=== PATIENT | female | born 1950 | race Caucasian/White ===

== ENCOUNTER → 2018-02-12 15:18 | Outpatient (CLI) | payer OTHER, SELFPAY ==
--- NOTE | 2018-02-12 15:11 | DI.REPORT_ITS ---
SYMPTOMS/DIAGNOSIS: PAIN AND SWELLING, DORSUM OF RIGHT FOOT, M79.671 RIGHT FOOT: Three views were obtained. There are minimal degenerative changes involving the joints of the mid foot and forefoot. Small osteophytes are present at the plantar fascia and Achilles attachments on the calcaneus. No other significant bony abnormality seen.
== END ==
PROVIDERS: PCP Family Medicine; Visit Provider Family Medicine
DX: M79.671 Pain in right foot (principal); M79.89 Other specified soft tissue disorders; M19.071 Primary osteoarthritis, right ankle and foot; M25.771 Osteophyte, right ankle
CPT/HCPCS: 73630

== ENCOUNTER 2018-02-20 08:30 | Outpatient (RCR) | payer OTHER, SELFPAY ==
--- NOTE | 2018-01-28 08:30 | PTTR_ITS ---
DATE: January 28, 2018 SUBJECTIVE: Rose Mary reports that she has been sore since this past weekend when she did a lot of standing. She continues to pay for it throughout the week. She has been compliant with her home stretches as well as with her self massage with use of the tennis ball. She reports that she overall feels that she has gotten better however continues to note symptoms are waxing and waning. OBJECTIVE: Manual therapy: ([id number]). Lumbopelvic distractions via leg pull. Soft tissue stretching to the hamstring, ITB, piriformis, SKC and hook lying lumbar rotation. Transferred to prone where STM was provided throughout the pelvic brim and gluteal musculature with TPR and CFM provided as needed. Reviewed her home stretches. Recommended frequent change of position to avoid aggravation. She will continue with her self massage techniques. Overall less tone and tenderness noted at todays session in comparison to last weeks. She chose to hold on taping at todays session and will monitor her symptoms. Ended with spot cold to the gluteal musculature and broad MHP surrounding in prone position for 10 minutes. She continues with her Wellness stabilization program and does not feel that the exercises are increasing her irritation. Recommended she continue to monitor this and will adjust accordingly. Direct treatment time: 30 minutes Total treatment time: 40 minutes
--- NOTE | 2018-02-04 14:11 | PTTR_ITS ---
DATE: 02/04/18 SUBJECTIVE: Rose Mary states that she is feeling better, however continue to have pain in lower back/ pelvic brim area with prolonged standing. OBJECTIVE: Manual therapy: ([id number]). performed her wellness program for core/ glut stabilization with global LE strengthening. I performed lumbopelvic stretching including SKTC, rotation in hooklying, LE distractions via leg pulls. Stretching of hamstrings, ITB, piriformis. She went into prone and received STM t/o glut and low back with focus on left. PRT's of glut medius, CFM over pelvic brim, greater trochanter, and left sacral border. She ended with spot cold and MHP x 10 min while seated. Direct treatment time: 30 min Total treatment time: 40 min
--- NOTE | 2018-02-06 09:00 | PN_ITS ---
DATE: February 06, 2018 REFERRING: Jose Armando Mcclure MD REFERRING PROVIDER DIAGNOSIS:: SI joint pain left PHYSICAL THERAPY DIAGNOSIS: proximal hip weakness, core weakness REPORTING PERIOD (for progress note and discharge note only): 12/29/17- 02/06/18 SUBJECTIVE: Rose Mary notes at least 50% improvement ranging up to 60% depending upon activity level. She reports pain at best is a 0/10 and at worst over the last week 5/10 on the VAS. She reports minimal to no pain with walking at this time. She reports she is able to stand for prolonged periods with less overall irritation however this remains the primary limiter. She is also noting some increased right foot pain. She has had on/off over the last few years. She has accommodated with tieing her shoes differently however the last couple of days her irritation has been more. Standardized Measures:Modified Oswestry Low Back Pain Questionnaire (MOLBPDQ): 8 % perceived disability rating OBJECTIVE: Posture: mild forward head and shoulder posturing. Gait: She is mildly antalgic secondary to the right foot. She notes no pain in her low back or pelvis with ambulation. Palpation: (-) PA mobilization lumbar levels. (-) pain to the pelvic brim at todays session. TP's into glut med and piriformis on the left however significantly less than at time of IE ROM: Active lumbar forward bend 10 inches fingertips to floor without pain. Extension WFL (-) lateral shift. Sidebending to the right fingertips to lateral joint line. Left 1/2 above lateral joint line. Rotation WNL without pain. AA LE ROM WNL's at this time. Strength: Demonstrates grossly 4+-5/5 LE strength without complaints of pain. Neurological: Intact to light touch. Treatment: Reassessment followed by soft tissue stretching to bilateral hamstring, ITB, piriformis, and SKC. Hook lying lumbar rotation also completed. Brief STM throughout the low back and pelvic brim into the left gluteal region with TPR to the glut med and piriformis. Direct treatment time 30 minutes Total treatment time 30 minutes ASSESSMENT: Rose Mary overall doing much better in comparison to IE. Increased ROM and functional strength. Increased community ambulation without pain. Continues to note prolonged standing to be most irritable. Will reassess in 2 weeks. She will continue with strong I HEP and Wellness program for continued core stabilization and proximal hip stability. If level of symptoms exacerbates prior to this will contact us to reschedule. If overall continues to hold up well will plan to progress back to previous Wellness program with discharge from skilled PT services. G-Codes (fill in modifier after appropriate code): Patient's primary functional limitation is in the category of: __x__ Changing and maintaining body position: [id number] Projected goal: __x__ Changing and maintaining body position: [id number] STG: __4__ weeks. 1: Independent with strong HEP, returning to full wellness program with manageable symptoms.(MET) 2: Improve body mechanics with functional ADL's, reducing pain by 50% or greater. (MET) 3: Reduce perceived disability rating by 25% (MET) PLAN: Reassess in 2 weeks. If overall continues to hold up well will plan on discharge from our care at that time. If symptoms exacerbate will contact to reappoint at a sooner date and time. She will continue with her strong I self management program. Recommended she consult with her orthopedic doctor in regards to her continued irritation into her foot. Patient is in agreement with this plan.
--- NOTE | 2018-02-20 08:45 | PTTR_ITS ---
DATE: February 20, 2018 SUBJECTIVE: Rose Mary reports that she is doing great. She reports she received the injection into the SI joint last week and has noted significant reduction in sensitivity. 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 She reports that she has been on her feet for the last 2 days at the fair helping with the [employer]. She reports mild soreness however is very happy with her level of improvement. She feels that she can continue back on her Wellness program at this time. OBJECTIVE: Manual therapy: ([id number]).Reassessment of active lumbar ROM is WNL's. Presents with minimal sensitivity to palpation. Soft tissue stretching to bilateral hamstring, ITB, piriformis, and SKC. Hook lying lumbar rotation also completed. CFM to the pelvic brim with brief TPR to the glut med. PA mobilization of the lumbar levels. All without complaints. Reviewed HEP and will progress back to Wellness program. We reassess if symptom level exacerbates if no formal contact is made in one month duration will be considered discharged from our care. Patient is in agreement with this plan. Rose Mary declined need of modality post session. Direct treatment time: 15 minutes Total treatment time: 15 minutes
== END 2018-02-27 23:59 | disposition home or self-care (01) ==
LOC: PT 08:30
PROVIDERS: PCP Family Medicine; Referring Provider Family Medicine; Visit Provider Family Medicine
DX: M53.3 Sacrococcygeal disorders, not elsewhere classified (principal); M62.81 Muscle weakness (generalized)
CPT/HCPCS: 97140

== ENCOUNTER → 2018-02-26 11:58 | Outpatient (CLI) | payer OTHER, SELFPAY | PROVIDERS: PCP Family Medicine; Visit Provider Orthopaedic Surgery | DX: M79.671 Pain in right foot (principal); M19.071 Primary osteoarthritis, right ankle and foot | CPT/HCPCS: 99213 ==

== ENCOUNTER 2018-10-07 01:07 | Outpatient (CLI) | payer OTHER, SELFPAY ==
[2018-10-07 10:28] LABS: HCT 39.5 % (36.0-46.0); HGB 12.8 g/dL (12.0-15.5); Mean Corp. HGB Concentration 32.4 g/dL (32.0-36.0); Mean Corpuscular Hemoglobin 29.9 pg (27.0-33.0); Mean Corpuscular Volume 92.3 fL (80-95); Mean Platelet Volume 10.9 fL (8.0-11.0); Platelet Count 235 x1000/uL (130-400); RBC 4.28 m/cumm (4.00-5.20); RBC Distribution Width 14.2 % (11.7-14.6)
[2018-10-07 10:38] LABS: Anion Gap 5.9 mmol/L (3-11); BUN 26 mg/dL (7-18); CO2 31.1 mmol/L (21.0-32.0); CREATININE 0.94 mg/dL (0.55-1.02); Chloride 103 mmol/L (98-107); Estimated GFR 59.22 (mL/min/1.73m2); Glucose 106 mg/dL (70-100); Potassium 3.8 mmol/L (3.5-5.1); Sodium 140 mmol/L (136-145)
== END 2018-10-07 01:27 ==
PROVIDERS: PCP Family Medicine; Visit Provider Family Medicine
DX: I10 Essential (primary) hypertension (principal)
CPT/HCPCS: 36415; 80048; 85027

== ENCOUNTER 2018-10-22 00:25 | Outpatient (CLI) | payer OTHER, SELFPAY ==
--- NOTE | 2018-10-22 12:00 | DI.MAMMO_ITS ---
SYMPTOMS/DIAGNOSIS: SCREENING, Z12.31 MAMMOGRAMS: Mammograms were interpreted according to the usual protocol including computer analysis with CAD system, tomosynthesis and C view imaging. The breast tissue is of moderate radiodensity. There is no dominant mass. There are no suspicious calcifications and there has been no significant interval change when compared with prior images. SUMMARY: No evidence of malignancy, category 1. Yearly screening mammography is recommended. Breast density category B. SA ASSESSMENT OF FINDINGS: Negative. Category 1. Patient will receive a letter notifying them of these results. BI-RADS category B. There are scattered areas of fibroglandular density.
== END 2018-10-22 00:45 ==
PROVIDERS: PCP Family Medicine; Visit Provider Family Medicine
DX: Z12.31 Encounter for screening mammogram for malignant neoplasm of breast (principal)
CPT/HCPCS: 77063; 77067

== ENCOUNTER 2019-03-25 01:23 | Outpatient (CLI) | payer OTHER, SELFPAY ==
--- NOTE | 2019-03-25 10:46 | DI.MRI_ITS ---
EXAM: MR LUMBAR SPINE WO CLINICAL HISTORY: BACK PAIN RADIATING TO LEFT LEG, LT LUMBAR RADICULOPATHY, M54.16. TECHNIQUE: Multiplanar multisequence MRI was performed. COMPARISON: No exams were available for comparison FINDINGS: No significant bony signal abnormality seen. Note is made of prominent hypertrophic degenerative henrietta nges involving facet joints at L4-5 and L5-S1 bilaterally. The conus medullaris appears intact. No significant neural foraminal narrowing seen. At L5-S1 there are very prominent hypertrophic degenerative changes of the facet joints. No central canal spinal stenosis. No disc herniation. At L4-5 there is moderate central canal spinal stenosis secondary to disc bulge and prominent hypertr ophic facet degenerative changes. No focal disc herniation seen. At L3-4 there is mild bilateral facet hypertrophy. There is an apparent inferiorly projecting disc h erniation versus extruded disc fragment which is paracentral and to the left and lies at and inferior to the disc level. There is marked compromise of the thecal sac on the left at this level. At L 2-3 there are no significant findings. At L1-2 there are no significant findings. IMPRESSION: 1. Moderate central canal spinal stenosis at L4-5, mild pseudospondylolisthesis noted at this level. Marked facet hypertrophy. 2. Central and left lateral disc herniation projected at and inferior to the disc level at L3-4 with probable extruded disc fragment associated. Please correlate with the patient's clinical exam.
== END 2019-03-25 01:43 ==
PROVIDERS: PCP Family Medicine; Visit Provider Family Medicine
DX: M54.16 Radiculopathy, lumbar region (principal); M54.5 Low back pain; M47.27 Other spondylosis with radiculopathy, lumbosacral region; M48.07 Spinal stenosis, lumbosacral region; M51.16 Intervertebral disc disorders with radiculopathy, lumbar region
CPT/HCPCS: 72148

== ENCOUNTER 2019-04-28 02:28 | Outpatient (CLI) | payer OTHER, SELFPAY ==
[2019-04-28 11:15] LABS: Abs Immature Grans 0.01 k/cumm (0.0-0.09); Absolute Basophil Count 0.03 k/cumm (0.0-0.2); Absolute Eosinophil Count 0.07 k/cumm (0.0-0.7); Absolute Lymphocyte Count 1.44 k/cumm (1.2-3.4); Absolute Monocyte Count 0.47 k/cumm (0.11-0.7); Basophils % 0.5; Eosinophils % 1.2; HCT 41.3 % (36.0-46.0); HGB 13.6 g/dL (12.0-15.5); Immature Grans % 0.2; Lymphocytes % 23.9; Mean Corp. HGB Concentration 32.9 g/dL (32.0-36.0); Mean Corpuscular Hemoglobin 30.4 pg (27.0-33.0); Mean Corpuscular Volume 92.2 fL (80-95); Mean Platelet Volume 10.6 fL (8.0-11.0); Monocytes % 7.8; Neutrophils % 66.4; Platelet Count 269 x1000/uL (130-400); RBC 4.48 m/cumm (4.00-5.20); RBC Distribution Width 14.3 % (11.7-14.6); White Blood Cell Count 6.02 k/cumm (4.4-10.8)
[2019-04-28 11:24] LABS: Bilirubin Negative (Negative); Blood Trace-intact (Negative); Clarity Clear (Clear); Glucose Negative (Negative); Ketones Negative (Negative); Leukocyte Esterase Trace (Negative); Nitrite Negative (Negative); Urobilinogen 0.2 EU/dL (Up TO 0.2)
[2019-04-28 11:36] LABS: ALT 32 U/L (14-59); AST 17 U/L (15-37); Albumin 3.9 g/dL (3.4-5.0); Alkaline Phosphatase 105 U/L (46-116); Anion Gap 10.3 mmol/L (3-11); BUN 20 mg/dL (7-18); Bilirubin, Total 0.5 mg/dL (0.2-1.0); CO2 29.7 mmol/L (21.0-32.0); CREATININE 0.89 mg/dL (0.55-1.02); Calcium 9.6 mg/dL (8.5-10.1); Chloride 103 mmol/L (98-107); Glucose 121 mg/dL (70-100); Potassium 3.8 mmol/L (3.5-5.1); Sodium 143 mmol/L (136-145); Total Protein 7.2 g/dL (6.4-8.2)
[2019-04-28 11:42] LABS: Bacteria Few HPF (Negative); C & S Indicated? C&S Done As Ordered; Casts Negative LPF (Negative); Crystals Negative HPF (Negative); Epithelial Cells Moderate HPF (Negative); Mucus Trace (Negative); RBC 0-2 (0-2)
== END 2019-04-28 02:48 ==
PROVIDERS: PCP Family Medicine; Visit Provider Family Medicine
DX: Z01.818 Encounter for other preprocedural examination (principal); M54.16 Radiculopathy, lumbar region; Z01.812 Encounter for preprocedural laboratory examination
CPT/HCPCS: 36415; 80053; 81003; 81015; 85025; 87086

== ENCOUNTER 2020-03-15 10:16 | Outpatient (CLI) | payer OTHER, SELFPAY ==
--- NOTE | 2020-03-15 10:15 | DI.RAD_ITS ---
EXAM: XR FOOT RT COMPLETE CLINICAL HISTORY: right foot pain TECHNIQUE: COMPARISON: No exams were available for comparison FINDINGS: Three views were obtained. There are small osteophytes of the sites of attachment of plantar fascia and Achilles tendon on the calcaneus. Minimal degenerative changes noted involving the joints of the foot ankle. No other significant bony or soft tissue abnormality seen. Alignment appears within no rmal limits. IMPRESSION: RADIATION DOSE DELIVERED: Total DLP
== END 2020-03-15 10:36 ==
PROVIDERS: PCP Nurse Practitioner Family; Referring Provider Nurse Practitioner Family; Visit Provider Student in an Organized Health Care Education/Training Program
DX: M79.671 Pain in right foot (principal); M25.774 Osteophyte, right foot; M19.071 Primary osteoarthritis, right ankle and foot
CPT/HCPCS: 99203; 99214; 73630

== ENCOUNTER → 2020-04-13 02:55 | Outpatient (CLI) | payer OTHER, SELFPAY ==
[2020-04-13 13:06] LABS: Anion Gap 9.1 mmol/L (3-11); BUN 21 mg/dL (7-18); CO2 30.9 mmol/L (21.0-32.0); CREATININE 0.91 mg/dL (0.55-1.02); Calcium 9.3 mg/dL (8.5-10.1); Calculated LDL 132 mg/dL (<100); Chloride 103 mmol/L (98-107); Cholesterol 220 mg/dL (<200); Glucose 99 mg/dL (74-106); HDL Cholesterol 47 mg/dL (40-60); Potassium 3.9 mmol/L (3.5-5.1); Sodium 143 mmol/L (136-145); Triglyceride 206 mg/dL (<150)
[2020-04-13 13:12] LABS: Hemoglobin A1C 5.4 % (<5.7)
== END ==
PROVIDERS: PCP Nurse Practitioner Family; Visit Provider Nurse Practitioner Family
DX: I10 Essential (primary) hypertension (principal); E78.5 Hyperlipidemia, unspecified; R73.01 Impaired fasting glucose
CPT/HCPCS: 36415; 80048; 80061; 83036

== ENCOUNTER 2020-06-13 00:54 | Outpatient (CLI) | payer OTHER, SELFPAY ==
--- NOTE | 2020-06-13 07:00 | DI.MAMMO_ITS ---
EXAM: MAMMO SCREENING CLINICAL HISTORY: screening,Z12.39 TECHNIQUE: Bilateral full field digital CC and MLO mammographic images were obtained with 3D tomosyn thesis and utilizing computer aided detection (CAD). COMPARISON: Available for comparison. FINDINGS: Masses/Architectural Distortion: There is a new ovoid density in the posterior medial left breast on the CC view. There is an asymmetric density in the inferior right breast on the MLO view. Microcalcifications: No suspicious pleomorphic-type are seen. Skin Thickening/Nipple Retraction: None. IMPRESSION: 1. New ovoid density in the posterior medial left breast on the CC view and asymmetric density in the inferior right breast on the MLO view. 2. Additional views of the breasts are recommended for further evaluation. Ultrasound may be indicat ed at that time. BI-RADS Category 0 - Assessment Incomplete: Need additional imaging evaluation Breast Density - Category B - Scattered areas of fibroglandular density A negative radiographic report should not delay biopsy if a dominant or clinically suspicious mass is present. Up to ten percent of cancers are not identified on mammography. A negative report may reinforce clinical impression. Adenosis and dense breasts may obscure an underlying neoplasm. False positive reports average 6 to 10%. Patient will receive a letter notifying them of these results.
== END 2020-06-13 01:14 ==
PROVIDERS: PCP Nurse Practitioner Family; Visit Provider Nurse Practitioner Family
DX: Z12.31 Encounter for screening mammogram for malignant neoplasm of breast (principal); R92.8 Other abnormal and inconclusive findings on diagnostic imaging of breast
CPT/HCPCS: 77063; 77067

== ENCOUNTER 2020-06-20 01:14 | Outpatient (CLI) | payer OTHER, SELFPAY ==
--- NOTE | 2020-06-20 | DI.US_ITS ---
EXAM: MG MAMMO SCREEN CALL BACK BI and U/S breast RT limited and U/S breast LT limited CLINICAL HISTORY: F/U MAMMO, NEW OVOID DENSITY LT BREAST, ASYMMETRIC DENSITY RT BREAST. TECHNIQUE: Craniocaudal and mediolateral oblique Full Field Digital Mammography views of the bilater al breast with Computer Aided Diagnosis followed by Tomosynthesis and bilateral breast ultrasound. COMPARISON: Priors available for comparison. FINDINGS: Mammography/Tomosynthesis: Masses/Architectural Distortion: In the left breast, there is again seen a well-circumscribed ovoid d ensity in the medial posterior aspect on the CC view. In the right breast, several small well-circum scribed nodules are seen in the inferior breast on the MLO view. No associated microcalcifications a re seen. Microcalcifictions: No suspicious pleomorphic-type are seen. Skin Thickening/Nipple Retraction: None. Bilateral breast US: Echotexture: Normal appearance of the glandular tissue. Shadowing: No suspicious foci. Cyst: None. Solid lesions: In the left breast, at the 9 o'clock position 3 cm from the nipple there is an ovoid 0 .5 cm by 0.6 x 0.3 cm hypoechoic nodule present. No posterior acoustic enhancement or shadowing is s een. No internal blood flow is noted. No suspicious sonographic features are noted. In the right b reast, the lower inner and lower outer quadrants were evaluated sonographically no cystic or solid ma sses are seen. Ductal dilation: None. IMPRESSION: 1. No evidence of malignancy is noted. 2. A six-month follow-up bilateral mammogram and left breast ultrasound are recommended for re-evalua tion. 3. The findings were discussed with the patient on the date of the examination. BI-RADS Category 3 - 6 month - Probably Benign Finding: Recommend follow-up mammography in 6 months Breast Density - Category B - Scattered areas of fibroglandular density A negative radiographic report should not delay biopsy if a dominant or clinically suspicious mass is present. Up to ten percent of cancers are not identified on mammography. A negative report may reinforce clinical impression. Adenosis and dense breasts may obscure an underlying neoplasm. False positive reports average 6 to 10%. Patient will receive a letter notifying them of these results.
--- OUTSIDE RECORDS SUMMARY | 2020-06-20 01:16 | XMS_ITS | Encounter Summary ---
:1950 Author Care Team Providers Name Role Phone [facility] Primary Care Provider [phone] [facility] [phone] Reason for Visit SLEEP CLINIC Follow-Up CPAP/BIPAP Therap y Assessment and Plan Assessment Note I provided greater than 25 minutes in the care of this patient, more than half the time was spent in parn-we-wlra couns eli. 1. Obstructive sleep apnea syndr ome 09/24/17 Diag PSG Mild KELSEY AHI 13.2/hr RDI 14.5/hr Supine AHI 62/hr (65 min in supine), R Lateral AHI 4/hr; L Lateral AHI 5/hr. kat O2 86%, 0 min <= 88% and mean O2 92%. 10/23/17 started apap 6 to 16cm 01/23/18 increased apap 10 to 16cm due to residual AHI 5.7/hr. noted symptomatic improvement with in sleep quality, headaches and nocturia. 06/09/18 inc to apap 11 to 18cm due to t x AHI still elevated at 5.4/hr, pt reporting some days with unrefreshing sleep. cpap data also shows few hours on few nights with at highest pressure setting with residual events. I suspect these are painter pine position sleep periods, due to supine AHI 62/hr. d/w pt positional therapy device vs. increasing cpap and pt elected latter. 07/20/18 inc to apap 12 to 18cm via sanchez view small due to at least 1 night in last 7 days with tx AHI at 7.9/hr, overall better, no periods at max pressure anymore, overall tx AHI 4.6/hr which is impro patty. new starting cpap 12cm pressure wel l tolerated by patient in clinic. add room humidifier for dry mouth despite humidity level 12/07/18: mask refit for airfit f20 med. low threshold to dec pressure to apap 11 to 18 (or even lower if needed, tho trade off his higher tx AHI). she is getting cheek puffing and mask leak on these hig her pressures. finds airfit f20 more com fortable than sanchez view. 04/19/19: cont apap 12 to 18cm, new mask f20 med w/ padacheek liner working well for her, tx AHI much better at 1.8/hr and dry mouth resolved too. 1 year f/u, sooner if needed 04/18/20: cont same pressure, 1.5 year f /u 2. Xerostomia 05/30/18 related to cpap use, t ean her how to increase humidifier setting 07/20/18 switched to adaptive humidifier, confirmed it was set at max 5 level, tube temp at 3 level. if not improved, then advised her to add room humidifier. 04/19/19: dry mouth is better now, not e belgica using xylimelt products anymore. 04/18/20: dry mouth issue but tolerable Discussion Note Remember to always take precautio ns on drowsy driving. If you experience sleepiness while driving, find a safe area to extract puller and take a break. Research suggests taking a power nap (15 to 20 beth nathan) and/or coffee (or caffeine containi ng food such as dark chocolate) may be effective aides. As always, you should use your judgement on whether to drive at all, if you are sleep deprived or feeling sleepy. Thank you for the kind opportunity to pa rticipate in your medical care. You expressed good understanding of your diagnosis and treatment, and agreed to proceed with the plan we discussed together. If yo u have any questions or concerns prior t o your next appointment, please call Sleep Clinic. Patient educational handouts: No information available. Plan of Care Patient Instructions 1. We will keep the same pressure f or auto cpap 12 to 18cm. 2. You are doing well on your mask AirFi t f20 medium full face mask with padacheek liner 3. Your dry mouth is not too bad. You al so don't have have cheek puffing anymore. 4. Keep up the good work with using cpap therapy, it has reduced the number of times you stop breathing from 14 times per hour down to 2.6 times per hour. 5. Let the surgeons and anesthesiologist s know you have sleep apnea and use cpap and bring your cpap machine to hospital for surgery. I wish you the best for the right ankle surgery. 18 month follow up, sooner if needed, pl ease call me! Reminders Provider Appointments Return to on or around Mikal Persaud MD, Office 12/17/2021 Board Certified Sleep Physician Lab None ? ? recorded. Referral None ? ? recorded. Procedures None ? ? recorded. Surgeries None ? ? recorded. Imaging None ? ? recorded. Medications Name Start Date ? ? Aleve 220 mg capsule ? Take by oral route as needed. calcium ? Glucosamine ? 1000mg BID hydrochlorothiazide 25 mg tablet ? Take 1 tablet every day by oral route. ibuprofen 200 mg tablet ? Take by oral route as needed. Multivital ? propranolol 80 mg tablet ? Take 1 tablet every day by oral route. sertraline 50 mg tablet ? Take 1 tablet every day by oral route. Systane (PF) 0.4 %-0.3 % eye drops in a dropperette ? Medications Administered None recorded. Vitals Height Weight BMI Blood Pressure 5 ft 5 in 205.7 lbs 34.2 kg/m2 131/47 mm[Hg] Results Lab Results None recorded. Allergies Code Code System Name Reaction Severity Onset 7052 RxNorm Morphine Itching ? ? Shellfish Derived Vomiting ? ? Problems Name Status Onset Date Source ? Hyperlipidemia Active ? ? Depressive Disorder Active ? ? Obstructive Sleep Apnea Syndrome Active ? ? Migraine Active ? ? Hypertensive Disorder Active ? ? Osteoarthritis Active ? ? Neck Pain Active ? ? Pericardial Cyst Active ? ? History of Malignant Neoplasm of Colon Active ? ? Procedures None recorded. Vaccine List None recorded. Social History Tobacco Smoking Status Never Smoker Alcohol intake None Live alone or with others? with others Are you currently employed? N Blind or serious difficulty seeing Y Not es: corrective glasses Language Difficulties No Most Recent Tobacco Use Screening 12/07/2018 Hard of hearing or deaf in one or Y Note s: hearing aids both ears both ears? Caffeine intake Notes: Soda: 1 ca n daily Occupation retired Functional Status Blind or serious Yes difficulty seeing? Past Encounters 04/18/2020 Obstructive Sleep Apnea Syndrome; Xerost anders Persaud MD, Board Certified Sleep Ph ysician[facility] [place] [address], Ph. History of Present Illness Note: <p>Rose Mary Cancino is a pleasant 68 year old woman who returns for cpap therapy follow up.& lt;/p><p>
</p><p>Comorbidities hypertension, KELSEY, migraines, depression </p><p>
</p><p><strong>PREVIOUS SLEEP EVALUATION: </strong></p><p>
</p><p>She had sleep evaluation in early 2017 prompted by her observation of her snoring and witnessed apneas. she also had unrefreshing sleep, nightsweats, nocturia 1/night.</p><p>
</p><p>Diagnostic PSG on 09/24/17 (Wt 204 lbs / bmi 33.9) showed Mild KELSEY that was very severe in supine position sleep. Sleep efficiency was 83%, AHI 13.2/hr, RDI 14.5/hr, REM AHI 4.1/hr, REM RDI 4.1/hr, supine AHI 62/hr (65 minutes in supine sleep), right lateral AHI 4/hr, left lateral AHI 5/hr, sp02 kat 86%, 0 minutes were spent luz maria saturation <88%, arousal index 8/hr, PLMi 1/hr, PLM arousal index 0.9/hr. EKG NSR.

</p><p>Last visit on 06/09/18, patient had good benefit on cpap, but due to residual AHI 5.4/hr that is slightly elevated and periods where cpap pressures were at max value, so cpap pressure was further increased to apap 12 to 18cm.</p><p>
</p><p><strong>TODAY: on apap 12 to 18cm via airfit f20 medium with padacheek liner.</strong>< /p><p><span>min cheek puffing and dry mouth is issue but tolerable, not too bad</span>
</p><p><span>back is now 90% better after surgery</span><b r></p><p><span>but now having ankle surgery for arthritis</span>
</p><p><span>not needing </span>xylimelt<span> products anymore</spa n>
</p><p>
</p> Review of Systems ? Notes: <p>A 14-point <strong>REVIEW OF SYSTEM</strong> was obtained and reviewed, includes CONSTITUTIONAL, EYE S, ALLERGY, NEUROLOGIC, ENDOCRINE, GI, CARDIOVASCULAR, SKIN, MSK, E NT, , RESPIRATORY, HEMATOLOGIC, PSYCH systems. Pertinent symptoms are discu ssed in history, otherwise negative.
</p><p>dry m outh</p><p>nocutria</p><p>joint pain</p><p></p> Physical Exam ? Notes: <p>

</p><p>GENERAL: { {well appearing# chronically ill appearing}}, appearing {{stated# older th an younger than}} age, no acute distress, {{obese# normal tall lean}} build
HEENT: atraumatic skull, anicteric
RESPIRATORY: qu iet respiration, able to speak in full sentences without dyspnea, no accessor y muscle use,
SKIN: no facial skin rash, no facial skin lesions
PSYCH IATRIC: well groomed, fluent speech, good insight, linear thought process, good eye contact, {{balanced# flat}} affect
NEUROLOGIC: alert, oriented, symmetric facial expression

<strong>Cl inical Data Reviewed:</strong>

1. {{Modified Pediatric [place] Sleepiness Scale [place] Sleepiness Scale*}}: 3 out of {{24# 21 due to not d riving}} , stable

2. {{Sleep study results as above.# Sleep study resul ts not available, requested Unable to obtain sleep study reports No sleep study reports}}

3. Machine Download Data:
{{Resmed AirSense 1 0 Auto CPAP Resmed AirSense 10 Auto BIPAP Respironics Dreamstati on Auto CPAP* Respironics Dreamstation Auto BIPAP}}
PAP Settings: {{A uto CPAP# Auto BIPAP CPAP BIPAP}} 12 to 18 CmH2O
Date Range: {{DATE 03/18/2020}} to {{DATE 04/16/2020}}
<stro ng>Days with Usage >=4 hours: {{76.7# Over 70 100}} %</strong>
<s adrianne>Avg Usage per Day Used: {{1 2 3 4 5* 6 7 8 9 10}} Ho urs {{58# 0}} Minutes </strong></p><p>Mean/Median Pressure: {{12.5# number___} } cmh2O
90th-tile/95th-tile Pressure: {{13.7# number___}} cmH2O
{{Avg Time in Large Leak Daily- # Median-90th%tile Leak: Laura k:}} {{Not significant* Significant leak}}
<strong>Average AH I: {{2.6# enter}} per hour </strong>
{{Normal flow limitation index. * Abn ormal flow limitation index. }}
{{Normal vibratory snore index. * Abn ormal vibratory snore index. }}
{{Daily details do not show significant betina ods at maximum pressure # Daily details do not show significant periods at maximum pressure Daily details shows significant periods at maximum pressure} }
</p><p><span></span></p>
--- OUTSIDE RECORDS SUMMARY | 2020-06-20 01:16 | XMS_ITS ---
:1950 Author Care Team Providers Name Role Phone [facility] OTHER [phone] [address] [place] [address] Primary Care Provider [phone] Allergies Code Code System Name Reaction Severity Status Onset 7095 RxNorm Morphine Itching ? Active ? Shellfish Vomiting ? Active ? Derived Medications Name Status Start Date Stop Date ? ? Aleve 220 mg capsule Active ? Not availab le Take by oral route as needed. calcium Active ? Not available Glucosamine Active ? Not available 1000mg BID hydrochlorothiazide 25 mg tablet Active ? Not available Take 1 tablet every day by oral route. ibuprofen 200 mg tablet Active ? Not avai lable Take by oral route as needed. Multivital Active ? Not available propranolol 80 mg tablet Active ? Not florinda ilable Take 1 tablet every day by oral route. sertraline 50 mg tablet Active ? Not avai lable Take 1 tablet every day by oral route. Systane (PF) 0.4 %-0.3 % eye drops in a Active ? Not available dropperette Problems Name Status Onset Date Source ? Hyperlipidemia Active ? ? Depressive Disorder Active ? ? Obstructive Sleep Apnea Syndrome Active ? ? Migraine Active ? ? Hypertensive Disorder Active ? ? Osteoarthritis Active ? ? Neck Pain Active ? ? Pericardial Cyst Active ? ? Apnea Unknown ? History Snoring Unknown ? History History of Malignant Neoplasm of Colon Active ? ? Procedure by Method Unknown ? History Procedures None recorded. Results Lab Results None recorded. Past Encounters 04/18/2020 Obstructive Sleep Apnea Syndrome; Everette Persaud MD, Board Certified Sleep Ph ysician: [address] [place] [address], Ph. 04/19/2019 Obstructive Sleep Apnea Syndrome; Everette Persaud MD, Board Certified Sleep Ph ysician: [address] [place] [address], Ph. Social History Tobacco Smoking Status Never Smoker Vaccine List None recorded. Plan of Care Patient Instructions 1. We [...] sooner if needed, pl ease call me! 1. We will keep the same pressure f or auto cpap 12 to 18cm. 2. You are doing well on your new mask A irFIt f20 medium full face mask with padacheek liner 3. Your dry mouth has resolved since the changes we made last time. You also don't have have cheek puffing anymore. 4. Keep up the good work with using cpap therapy, it has reduced the number of times you stop breathing from 14 times per hour down to 2 times per hour. 5. Let the surgeons and anesthesiologist s know you have sleep apnea and use cpap and bring your cpap machine to hospital for surgery. I wish you the best for the back surgery, hope it works well for your back problems! 12 month follow up, sooner if needed, pl ease call me! Reminders Provider Appointments None recorded. ? ? Lab None recorded. ? ? Referral None recorded. ? ? Procedures None recorded. ? ? Surgeries None recorded. ? ? Imaging None recorded. ? ? Vitals 04/18/2020 03:30PM Office 30 Height Weight BMI Blood Pressure 165.1 cm 93.3 kg 34.2 kg/m2 131/47 mm[Hg] 04/19/2019 11:30AM Office 30 Height Weight BMI Blood Pressure 165.1 cm 96.39 kg 35.4 kg/m2 122/60 mm[Hg] 12/07/2018 11:00AM Office 30 Height Weight BMI Blood Pressure 165.1 cm 94.35 kg 34.6 kg/m2 122/58 mm[Hg] 07/20/2018 12:45PM Office 30 Height Weight BMI Blood Pressure 165.1 cm 92.99 kg 34.1 kg/m2 147/80 mm[Hg] 06/09/2018 03:45PM Office 30 Height Weight BMI Blood Pressure 165.1 cm 95.25 kg 34.9 kg/m2 160/90 mm[Hg] 01/23/2018 08:45AM Office 15 Height Weight BMI Blood Pressure 165.1 cm 91.22 kg 33.5 kg/m2 140/68 mm[Hg] 09/12/2017 Height Weight Blood Pressure 165.1 cm 92.71 kg 140/72 mm[Hg]
== END 2020-06-20 01:34 ==
PROVIDERS: PCP Nurse Practitioner Family; Visit Provider Nurse Practitioner Family
DX: R92.8 Other abnormal and inconclusive findings on diagnostic imaging of breast (principal)
CPT/HCPCS: 76642; 77063; 77067

== ENCOUNTER 2021-01-08 01:20 | Outpatient (CLI) | payer OTHER, SELFPAY ==
--- NOTE | 2021-01-08 08:30 | DI.US_ITS ---
Exam(s) US BREAST LT COMPLETE EXAM: US BREAST LT COMPLETE CLINICAL HISTORY: 3-6 MOS f/u, f/u abnl mammo, r92.8,z09. TECHNIQUE: Complete ultrasound of the left breast was performed including all 4 quadrants, the retro areolar region, and the ipsilateral axilla. COMPARISON: Prior mammograms were reviewed. Today's mammogram was also reviewed . Prior ultrasound examination May 2020 also reviewed FINDINGS: Please refer to the combined mammogram/ultrasound report dictated today. IMPRESSION: Appropriate follow-up is . BI-RADS Category 3 - 6 month - Probably Benign Finding: Recommend follow-up mammography in 6 months Breast Density - Category B - Scattered areas of fibroglandular density Breast density Category C or D implies that the patient has dense breast tissue. Dense breast tissue can make it harder to find cancer on a mammogram. Dense breast tissue is also associated with an incr eased risk of breast cancer. This information about the result of the mammogram report was provided to the patient to raise their awareness. Use this report when you speak with the patient about their risks for breast cancer, which includes their family history. At that time, you may recommend additional screening tests (Ultrasoun d or MRI) as these tests may add significant information. A negative radiographic report should not delay biopsy if a dominant or clinically suspicious mass is present. Up to ten percent of cancers are not identified on mammography. A negative report may reinforce clinical impression. Adenosis and dense breasts may obscure an underlying neoplasm. False positive reports average 6 to 10%. Patient will receive a letter notifying them of these results.
--- NOTE | 2021-01-08 14:23 | DI.MAMMO_ITS ---
Exam(s) MAMMO DIAGNOSTIC BI EXAM: MAMMO DIAGNOSTIC BI AND COMPLETE LEFT BREAST ULTRASOUND CLINICAL HISTORY: 3-6 MOS F/U,f/u abnl mammo, r92.8,z09. TECHNIQUE: Both CC and MLO mammographic images of both breasts were obtained with 3D Tomosynthesiste chnique and utilizing computer aided detection (CAD). COMPARISON: Prior mammograms dating back to 2010, the most recent being May 2020. Prior breast ultrasound examinations May 2020 were also reviewed FINDINGS: BILATERAL MAMMOGRAM: There are no new significant radiographic findings in the right breast. Previously described area of concern in the right breast is less evident on the present study (and was apparently negative on ult rasound May 2020) In the left breast the small nodular density posteromedially is unchanged on the mammogram. A few sm all benign-appearing nodular densities are noted more anteriorly in the left breast. Benign microcalcifications in both breasts are again noted. There are no new malignant-appearing manuel rocalcification groups. There is no new architectural distortion nor skin thickening-traction. COMPLETE LEFT BREAST ULTRASOUND: At the 9 o'clock position there is a 4.5 x 2.5 millimeter wider than taller benign-appearing finding which has appearance of a conglomeration microcysts. At the 10 o'clock position there is a 4 x 3 millimeter benign microcyst. Both of the above findings have benign appearance and are in the general area of the previously descr ibed finding on the ultrasound of 06/20/2020. At the 12 o'clock position there is a 5 x 2 millimeter microcyst. At the 3 o'clock position there is a 3 x 2 millimeter microcyst. At the 5 o'clock position there is a 4 x 2 millimeter microcyst. There are no significant findings in the immediate retroareolar region. Left axilla is negative for significant adenopathy. IMPRESSION: 1. No radiographic evidence of malignancy in the right breast. 2. Stable benign-appearing posteriorly located nodule in the medial aspect of the left breast, unchan ged from May 2020. This may or may not correspond to the benign-appearing ultrasound findings a t 9 and 10 o'clock positions on today's left breast ultrasound. Nevertheless, there are no concernin g focal ultrasound findings on today's complete left breast ultrasound. Appropriate follow-up is repeat left breast imaging in 6 months, this to include repeat left breast m ammogram and complete left breast ultrasound.. Findings and recommendations were discussed by myself with the patient today. BI-RADS Category 3 - 6 month - Probably Benign Finding: Recommend follow-up mammography in 6 months Breast Density - Category B - Scattered areas of fibroglandular density Breast density Category C or D implies that the patient has dense breast tissue. Dense breast tissue can make it harder to find cancer on a mammogram. Dense breast tissue is also associated with an incr eased risk of breast cancer. This information about the result of the mammogram report was provided to the patient to raise their awareness. Use this report when you speak with the patient about their risks for breast cancer, which includes their family history. At that time, you may recommend additional screening tests (Ultrasoun d or MRI) as these tests may add significant information. A negative radiographic report should not delay biopsy if a dominant or clinically suspicious mass is present. Up to ten percent of cancers are not identified on mammography. A negative report may reinforce clinical impression. Adenosis and dense breasts may obscure an underlying neoplasm. False positive reports average 6 to 10%. Patient will receive a letter notifying them of these results.
== END 2021-01-08 01:40 ==
PROVIDERS: PCP Nurse Practitioner Family; Visit Provider Nurse Practitioner Family
DX: Z09 Encounter for follow-up examination after completed treatment for conditions other than malignant neoplasm (principal); R92.8 Other abnormal and inconclusive findings on diagnostic imaging of breast; N63.20 Unspecified lump in the left breast, unspecified quadrant
CPT/HCPCS: 76642; 77062; 77066; G0279

== ENCOUNTER 2021-07-12 01:48 | Outpatient (CLI) | payer MEDICARE, SELFPAY ==
--- NOTE | 2021-07-12 15:22 | DI.MAMMO_ITS ---
Exam(s) MAMMO SCREENING EXAM: MAMMO SCREENING CLINICAL HISTORY: screening,z12.39 TECHNIQUE: Mammograms were interpreted according to the usual protocol including computer analysis w [employer] CAD system, tomosynthesis and C-view imaging. COMPARISON: 2012 through 2020 FINDINGS: The breasts are composed of scattered fibroglandular densities, Breast Density category B. No suspicious masses or suspicious microcalcifications are seen. Scattered areas of nodularity and b enign calcifications are seen bilaterally. No skin thickening or abnormal axillary lymph nodes are seen. There has been no significant change from prior exams. IMPRESSION: BI-RADS Cat 2 - Benign Findings Yearly screening mammography is recommended. Breast Density - Category B, scattered fibroglandular densities. A negative radiographic report should not delay biopsy if a dominant or clinically suspicious mass is present. Up to ten percent of cancers are not identified on mammography. A negative report may reinforce clinical impression. Adenosis and dense breasts may obscure an underlying neoplasm. False positive reports average 6 to 10%. Patient will receive a letter notifying them of these results.
== END 2021-07-12 02:08 ==
PROVIDERS: PCP Nurse Practitioner Family; Visit Provider Nurse Practitioner Family
DX: Z12.39 Encounter for other screening for malignant neoplasm of breast (principal)
CPT/HCPCS: 77063; 77067

== ENCOUNTER 2021-07-12 04:28 | Outpatient (CLI) | payer MEDICARE, SELFPAY ==
[2021-07-12 13:57] LABS: Anion Gap 9.7 mmol/L (3-11); BUN 21 mg/dL (7-18); CO2 28.3 mmol/L (21.0-32.0); CREATININE 0.8 mg/dL (0.55-1.02); Calcium 9.8 mg/dL (8.5-10.1); Chloride 102 mmol/L (98-107); Glucose 97 mg/dL (74-106); Sodium 140 mmol/L (136-145)
== END 2021-07-12 04:29 | disposition home or self-care (01) ==
LOC: LBO 04:28
PROVIDERS: PCP Nurse Practitioner Family; Visit Provider Nurse Practitioner Family
DX: I10 Essential (primary) hypertension (principal)
CPT/HCPCS: 36415; 80048

== ENCOUNTER 2022-07-15 01:25 | Outpatient (CLI) | payer MEDICARE, SELFPAY ==
--- NOTE | 2022-07-15 06:45 | DI.MAMMO_ITS ---
Exam(s) MAMMO SCREENING EXAM: MAMMO SCREENING CLINICAL HISTORY: screening,z12.39 TECHNIQUE: Bilateral full field digital CC and MLO mammographic images were obtained with 3D tomosyn thesis and utilizing computer aided detection (CAD). COMPARISON: Available for comparison. FINDINGS: Masses/Architectural Distortion: There again seen multiple bilateral nodules present. There has been interval increase in size of 2 nodules in the central right breast on the CC view. Microcalcifications: No suspicious pleomorphic-type are seen. Stable bilateral calcifications are see n. Skin Thickening/Nipple Retraction: None. IMPRESSION: 1. Interval increase in size of 2 nodules in the central right breast on the CC view. 2. A spot compression views requested. A complete right breast ultrasound should be obtained for fur ther evaluation. BI-RADS Category 0 - Assessment Incomplete: Need additional imaging evaluation Breast Density - Category C - Heterogeneously dense Breast density category C or D implies that the patient has dense breast tissue. Dense breast tissue is very common and is not abnormal but dense breast tissue can make it harder to find cancer on a ma mmogram. Also, dense breast tissue may increase their breast cancer risk. This information about the result of the mammogram report was provided to the patient to raise their awareness. Use this report when you speak with the patient about their risks for breast cancer, which includes their family hist ory. At that time, you may recommend for more screening tests (Ultrasound or MRI) as they might be us eful based on their risk. A negative radiographic report should not delay biopsy if a dominant or clinically suspicious mass is present. Up to ten percent of cancers are not identified on mammography. A negative report may reinforce clinical impression. Adenosis and dense breasts may obscure an underlying neoplasm. False positive reports average 6 to 10%. Patient will receive a letter notifying them of these results.
--- NOTE | 2022-07-15 06:45 | DI.US_ITS ---
Exam(s) US SOFT TISS ABD WALL/LOW BACK EXAM: US SOFT TISS ABD WALL/LOW BACK CLINICAL HISTORY: Suspected lipoma of left upper back,d17.9. TECHNIQUE: Ultrasound was performed using standard protocol. COMPARISON: No exams were available for comparison FINDINGS: Sonographic assessment utilizing grayscale and color Doppler imaging was performed and targeted to th e area of clinical concern. There is a 6.0 x 1.2 x 3.3 cm isoechoic mass in the left upper back corresponding to the patient's pa lpable abnormality. Sonographically this would be consistent with a lipoma. IMPRESSION: Findings consistent with a soft tissue lipoma. DATA REPOSITORY:
== END 2022-07-15 01:45 ==
LOC: DI 01:26
PROVIDERS: PCP Nurse Practitioner Family; Visit Provider Nurse Practitioner Family
DX: Z12.31 Encounter for screening mammogram for malignant neoplasm of breast (principal); N63.10 Unspecified lump in the right breast, unspecified quadrant; R92.2 Inconclusive mammogram
CPT/HCPCS: 77063; 77067; 76705

== ENCOUNTER 2022-07-18 02:37 | Outpatient (CLI) | payer MEDICARE, SELFPAY ==
--- NOTE | 2022-07-18 | DI.US_ITS ---
Exam(s) MG MAMMO SCREEN CALL BACK UNI US BREAST RT COMPLETE EXAM: MG MAMMO SCREEN CALL BACK UNI-RIGHT AND COMPLETE RIGHT BREAST ULTRASOUND CLINICAL HISTORY: F/U MAMMO, R92.8,INTERVAL INCREASE IN SIZE OF 2 NODULES. TECHNIQUE: Unilateral spot mammographic images obtained with 3D tomosynthesisand utilizing computer aided detection (CAD). . Complete RIGHT breast Ultrasound was also performed, including all 4 quadrants, the retroareolar sloan on, and the ipsilateral axilla. COMPARISON: Prior mammograms were reviewed. This additional imaging was performed due to findings described on the recent screening mammogram of 07/15/2022. FINDINGS: DIAGNOSTIC MAMMOGRAM: Additional mammographic views performed todaydo not dissipate the nodules described on the recent [facility] mogram report. We proceeded with breast ultrasound. COMPLETE RIGHT BREAST ULTRASOUND: Ultrasound performed today reveals microcysts corresponding to the nodule on mammogram.. At the 12 o'clock position there is a 5 x 3 millimeter benign microcyst. Also at 12 o'clock position is a 4 x 3 millimeter microcyst. At the 1 o'clock position there is a 4 millimeter microcyst. Scanning of the ipsilateral axilla reveals no significant adenopathy. IMPRESSION: 1. There are benign microcysts corresponding to the finding described on the recent mammogram. Ther e are no solid lesions seen in the right breast on ultrasound examination. Appropriate follow-up as discussed by myself with the patient today is repeat right breast mammogram in 6 months, with earlier imaging if a self detected breast changes noted.. The patient was informed of these findings and recommendations prior to leaving the department today. BI-RADS Category 3 - 6 month - Probably Benign Finding: Recommend follow-up mammography in 6 months Breast Density - Category B - Scattered areas of fibroglandular density Breast density Category C or D implies that the patient has dense breast tissue. Dense breast tissue can make it harder to find cancer on a mammogram. Dense breast tissue is also associated with an incr eased risk of breast cancer. This information about the result of the mammogram report was provided to the patient to raise their awareness. Use this report when you speak with the patient about their risks for breast cancer, which includes their family history. At that time, you may recommend additional screening tests (Ultrasoun d or MRI) as these tests may add significant information. A negative radiographic report should not delay biopsy if a dominant or clinically suspicious mass is present. Up to ten percent of cancers are not identified on mammography. A negative report may reinforce clinical impression. Adenosis and dense breasts may obscure an underlying neoplasm. False positive reports average 6 to 10%. Patient will receive a letter notifying them of these results.
== END 2022-07-18 02:57 ==
LOC: DI 02:37
PROVIDERS: PCP Nurse Practitioner Family; Visit Provider Nurse Practitioner Family
DX: R92.8 Other abnormal and inconclusive findings on diagnostic imaging of breast (principal); N60.11 Diffuse cystic mastopathy of right breast; Z12.31 Encounter for screening mammogram for malignant neoplasm of breast
CPT/HCPCS: 76642; 77063; 77067

== ENCOUNTER 2022-07-23 03:22 | Outpatient (CLI) | payer MEDICARE, SELFPAY ==
[2022-07-23 12:22] LABS: Anion Gap 5.4 mmol/L (3-11); BUN 20 mg/dL (7-18); CO2 31.6 mmol/L (21.0-32.0); CREATININE 0.9 mg/dL (0.55-1.02); Calcium 9.1 mg/dL (8.5-10.1); Calculated LDL 85 mg/dL (<100); Chloride 103 mmol/L (98-107); Cholesterol 175 mg/dL (<200); Estimated GFR 67.92 (mL/min/1.73m2); Glucose 103 mg/dL (74-106); HDL Cholesterol 51 mg/dL (40-60); Potassium 3.4 mmol/L (3.5-5.1); Sodium 140 mmol/L (136-145); Triglyceride 197 mg/dL (<150)
== END 2022-07-23 03:23 | disposition home or self-care (01) ==
PROVIDERS: PCP Nurse Practitioner Family; Visit Provider Nurse Practitioner Family
DX: I10 Essential (primary) hypertension (principal); E78.5 Hyperlipidemia, unspecified
CPT/HCPCS: 36415; 80048; 80061

== ENCOUNTER → 2022-11-07 10:06 | Outpatient (BNVA) | payer MEDICARE, SELFPAY | PROVIDERS: PCP Nurse Practitioner Family; Referring Provider Nurse Practitioner Family; Visit Provider Physical Therapy Assistant | DX: Z12.11 Encounter for screening for malignant neoplasm of colon (principal); Z80.0 Family history of malignant neoplasm of digestive organs ==

== ENCOUNTER 2022-11-21 10:41 | Day surgery (SDC) | payer MEDICARE, SELFPAY ==
--- NOTE | 2022-11-20 19:17 | W.PM.DSUDISC ---
Date of service: 11/21/22 Time of Service: 12:42 Discharge Plan Disposition Patient Disposition: Home Condition: Good Discharge Details Reason For Visit: Screening colonoscopy Attending Provider: Darrin Mulligan Primary Care Provider: Thelma Rodriguez Home Meds and New Rx's Prescriptions: Continued losartan 100 mg tablet 100 mg PO DAILY Qty: 90 3RF diclofenac sodium 1 % gel 2 g topical QID PRN (Reason: pain) Qty: 100 3RF hydrochlorothiazide 25 mg tablet 25 mg PO DAILY Qty: 90 3RF sertraline 50 mg tablet 50 mg PO HS Qty: 90 3RF multivitamin [Daily Multi-Vitamin] 1 EACH tablet 1 ea PO DAILY glucosamine sulfate 2KCl 1,000 MG tablet 1,000 mg PO BID calcium carb and citrate-vitD3 1 EACH tablet extended release 1 ea PO BID ibuprofen 200 MG capsule 200 - 400 mg PO PRN PRN Systane (propylene glycol) 15 ML drops 1 drp Ophthalmic BID naproxen sodium [Aleve] 220 MG capsule 440 mg PO DAILY PRN Discontinued polyethylene glycol 3350 17 gram/dose powder 17 g PO ONCE Qty: 238 0RF Rx Instructions: Take per colonoscopy instructions as provided by ordering providers office bisacodyl [Dulcolax (bisacodyl)] 5 mg tablet,delayed release (DR/EC) 5 mg PO ONCE Qty: 4 0RF Rx Instructions: Take per colonoscopy instructions provided by ordering providers office Discharge Instructions Additional Instructions: Rose Mary, we were able to complete your colonoscopy today without any difficulty. I did find 2 small areas that seem consistent with polyps. I removed these both completely. Otherwise, your colonoscopy looked fantastic. The quality of your preparation was excellent, and I did not see anything concerning for colon cancer. Based on your history, a typical recommendation is a follow-up colonoscopy every 5 years. However, this can be influenced by some types of colon polyps. Once I have the pathology report from the polyps that I removed today I will be in touch. 1. If tolerated, consume a soft, low fiber diet for 1-2 days. 2[address] Do not drive, drink alcohol, operate machinery, make critical decisions, or do activities that require coordination or balance for 24 hours. 3. Because air was put into your colon during the procedure, expelling air from your rectum (passing gas or farting) is normal. 4. You may not have a bowel movement for 1-3 days because of the colonoscopy prep. This is normal. 5. Go directly to the emergency room if you notice any of the following: Develop chills (warm to touch), or if you have a thermometer and your temperature is above 101 Difficulty breathing or difficultly swallowing Persistent vomiting Severe abdominal pain, other than gas cramps Severe chest pain Black, tarry stools Any bleeding ? exceeding one tablespoon 6. Call your physician if the site where your intravenous was started becomes red, swollen, painful, and warm to touch. 7. Your physician has reviewed your pre-procedure medications. Please continue to take those medications as previously ordered. You will be given specific information/education regarding any changes to your medications before leaving. Activity:: Activity as Tolerated Discharge Orders Discharge Orders: Discharge Order (Routine); Ordered 11/20/22 Ordered By: Darrin Mulligan DS: Diagnosis Discharge Diagnosis (1) Screening for colon cancer: Status: Acute Asessment and Plan: Follow-up on polypectomy results
--- NOTE | 2022-11-20 19:18 | COLE_ITS ---
Date of service: 11/21/22 Time of Service: 12:43 Colonoscopy Report Date of procedure: 11/21/22 Pre-op diagnosis general: Screening colonoscopy Post-op diagnosis procedure note: other (Colon polyps) Procedure: Colonoscopy with polypectomy Surgeon: Darrin Mulligan Anesthesia Type: General:No Airway Estimated blood loss (mL): 5 Pathology: other (Colon polyp at previous anastomosis, polyp at 25 cm) Complications: None Disposition: same day Indications: Rose Mary is a 72 year old woman who had a sigmoid colectomy for colon cancer. She is undergoing screening colonoscopy today. Prep: Miralax/Dulcolax Procedure Start Time: 12:15 Procedure End Time: 12:25 Retraction Time: 7 Findings: Colon polyp adjacent to the anastomosis, colon polyp at 25 cm Procedure Description: After the induction of monitored anesthetic care, and with the patient in left lateral decubitus position, I began by performing an external anorectal exam.? Perineum and skin were normal, as was the anal verge.? There was no evidence of external hemorrhoids.? Next, I performed a digital rectal exam.? I did not appreciate any abnormal findings.? Next, I advanced a colonoscope into the rectal vault.? I performed retroflexion.? This appeared normal.? Using insuf flation, I then advanced the colonoscope beyond the rectal folds and into the sigmoid colon before advancing towards the cecum.? Her previous colorectal anastomosis was seen around 20 cm from the anal verge. It appears to be a [id number] anastomosis. There is a small corner of the distal colonic remnant with a small amount of polypoid tissue. It was very sessile, and less than 0.25 cm. I removed this with cold forcep polypectomy. There was minimal bleeding. Using great care, I advanced along the true lumen of the a ferret limb of the anastomosis into the descending colon. About 5 cm past the anastomosis was another small area of sessile lymphoid appearing tissue. It was less than 0.25 cm. I removed this with cold forcep polypectomy as well. After that, I can continue to advance the colonoscope towards the cecum. The quality of the prep was excellent.? The scope was noted to be in the cecum by identification of the ileocecal valve and appendiceal orifice.? I then began withdrawing the colonoscope using repeated irrigation as necessary for full evaluation of the colonic mucosa. ?Once the scope was withdrawn to the level of the rectum, great care was taken to examine portions of the rectal folds.? Finally, the scope was withdrawn and the patient was brought to the same-day surgery recovery unit as the anesthetic wore off. ?The findings and instructions were shared with the patient prior to discharge.
[2022-11-21 10:59] VITALS: BP 137/65; PULSE 80; RESP 17; TEMP 36.3; O2SAT 95
[2022-11-21] MEDS: Lactated Ringers 1,000 ML 80 ML IV (11:18)
--- NOTE | 2022-11-21 11:26 | W.ANESPRE ---
General Info Date of Service Date Performed: 11/21/22 Height: 5 ft 5 in Weight: 88.8 kg Body Mass Index (BMI): 32.5 Surgical Procedure: Operation Date: 11/21/22 11:50 Proposed Procedure Side Surgeon danilo Mulligan MD Meds Allergies and Home Medications Allergies Allergy/AdvReac Type Severity Reaction Status Date / Time morphine sulfate Allergy Intermediate Itching Verified 11/21/22 11:06 [From Duramorph (PF)] shellfish derived AdvReac Mild vomit Verified 11/21/22 11:06 Home Medication Medication Instructions Recorded calcium carb,cit ER 600 mg-vit D3 1 ea PO BID 12/11/12 12.5 mcg (500 unit) tablet,ext.rel glucosamine sulfate 2KCl 1,000 mg 1,000 mg PO BID 12/11/12 tablet multivitamin (Daily Multi-Vitamin 1 ea PO DAILY 12/11/12 tablet) ibuprofen 200 mg capsule 200 - 400 mg PO PRN PRN 05/13/14 naproxen sodium 220 mg capsule 440 mg PO DAILY PRN 12/27/14 (Aleve) peg 400-propylene glycol 0.4 %-0.3 1 drp ophthalmic (eye) BID 12/27/14 % eye drops (Systane (propylene glycol)) diclofenac sodium 1 % topical gel 2 g topical QID PRN pain #100 grams 06/17/22 losartan 100 mg tablet 100 mg PO DAILY #90 tabs 06/17/22 hydrochlorothiazide 25 mg tablet 25 mg PO DAILY #90 tabs 08/24/22 sertraline 50 mg tablet 50 mg PO HS #90 tabs 08/24/22 Current Visit Medications: Current Medications Generic Name Dose Route Start Last Admin Trade Name Freq PRN Reason Stop Dose Admin Hyoscyamine Sulfate 0.125 mg 11/20/22 19:20 Hyoscyamine 0.125 Mg Sl/Oral/Chew SL 12/20/22 19:19 DIRECTED PRN Ringer's Solution 1,000 mls @ 80 mls/hr 11/21/22 06:00 11/21/22 11:18 IV 12/20/22 23:59 80 mls/hr INFUSION YASH Administration IV Miscellaneous Supplies 1 each 11/21/22 06:00 Iv Access IV 12/20/22 23:59 DIRECTED YASH Ondansetron HCl 4 mg 11/20/22 19:20 Ondansetron 4 Mg/2 Ml Vial IVP 12/20/22 19:19 Q4H PRN PRN Nausea / Vomiting Sodium Chloride 0 ml 11/21/22 06:00 Normal Saline Flush 10 Ml Syr IV 12/20/22 23:59 PRN PRN Sodium Chloride 0 ml 11/21/22 06:00 Normal Saline 10 Ml Vial IJ 12/20/22 23:59 DIRECTED PRN Sterile Water 0 ml 11/21/22 06:00 Water,Injection,Sterile 10 Ml Vial IJ 12/20/22 23:59 DIRECTED PRN PFSH Active Problems Active Problems: Problem Status Onset Code Screening for colon cancer Z12.11 Osteoarthritis M19.90 Hyperlipidemia E78.5 Essential hypertension I10 Generalized anxiety disorder F41.1 Sensorineural hearing loss (SNHL) of both ears H90.3 Obstructive sleep apnea ~08/2021 G47.33 Obesity E66.9 Major depressive disorder, recurrent F33.9 Trigger finger, right ring finger M65.341 Medical History Medical History (Updated 11/20/22 @ 19:17 by Darrin Mulligan MD) Bilateral sacroiliitis Left lumbar radiculopathy Malignant neoplasm of colon 1998 s/p sigmoid colectomy Migraine headache without aura Surgical History Surgical History Hx of thumb surgery (~05/20/14) Resection/interpositional arthroplasty, trapeziometacarpal joint, right thumb S/P colon resection (~1998) Sigmoid colectomy for colon cancer S/P colonoscopy (07/19/15) S/P lumbar fusion (05/18/19) L4-L5 laminectomy, medial facetectomy, L4-L5 posterior lumbar interbody fusion, left L3-L4 discectomy S/P tonsillectomy Pt. 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/07/13) Status post total right knee replacement (01/04/15) Tobacco Smoking/Tobacco Use Status: Never Passive smoking exposure: Yes Second hand exposure: Yes Alcohol Alcohol Intake: never Substance Use Substance use: Never Substance use type: does not use Vital Signs and Lab Results Vital Signs Most Recent Vital Signs in EMR: Most Recent Vital Signs Temp Pulse Resp BP Pulse Ox 36.3 C L 80 17 137/65 95 11/21/22 10:59 11/21/22 10:59 11/21/22 10:59 11/21/22 10:59 11/21/22 10:59 Lab Results Blood Type / Crossmatch: No Data to Display Complete Blood Count: No Data to Display Complete Metabolic Panel: No Data to Display Liver Function Panel: No Data to Display Coagulation Panel: No Data to Display Cardiac Panel: No Data to Display Arterial Blood Gas: No Data to Display Venous Blood Gas: No Data to Display Pancreas Panel: No Data to Display Thyroid Panel: No Data to Display Infectious Disease: No Data to Display Blood Cultures: No Data to Display Toxicology Panel: No Data to Display Imaging and Studies Imaging and Studies Study information below may be from another EMR and interpreted by another provider. Please see original notes in EMR for more complete details. Stress Test Summary: 06/15: normal perfusion and contraction. Pulmonary Function Summary: 06/15: overall normal study. Anesthesia Assessment and Plan Anesthesia History Personal History: No History of Anesthesia Complications Family History: No Family History of Anesthesia Complications Exercise Tolerance Exercise Tolerance: Metabolic Equivalents>4 Cardiac & Pulmonary Exam Cardiac Exam: Normal S1/S2 Heart Sounds Pulmonary Exam: Clear Bilateral Breath Sounds Implantable Cardiac Device Does patient have a Pacemaker or an ICD?: No Airway Exam Known Difficult Airway: No Mallampati Class: 3 Mouth Opening: Normal (> 3cm) Thyromental Distance: Greater than 3 cm Neck Range of Motion: Full ROM Neck Circumference: Normal Teeth Condition: Normal Dentition ASA Classification ASA Score: ASA 2 Emergency Case?: No NPO Status NPO Status: NPO Clears >2 hours, Solids >8 hours Anesthesia Plan Resuscitation Status: Full Code Anesthesia Technique: General Anesthesia Airway Planned: Natural Airway Monitors Used: Standard Monitors Preoperative Comments:: 72 yo female for colo. sig PMHx: HTN, KELSEY, anxiety/depression, migraines, lumbar fusion.
[2022-11-21 11:35] VITALS: BMI 32.5
--- NOTE | 2022-11-21 12:17 | BOWEL_PTH ---
PATIENT: Rose Mary Cancino LOC: [facility] U#:[id number] AGE/SX: 72/F ROOM: RE11/21/[address]: Darrin Mulligan MD : 1950 BED: DIS: 11/21/2022 SPEC #: [id number] RECD: 11/21/22 13:00 STATUS: AMILCAR REAnna #: [id number] MELODY: 11/21/22 12:[address]: Darrin Mulligan DEPT: Surgical Specimen RECD BY: Leola Thurston ENTERED: 11/21/22 13:02 SP TYPE: Bowel OTHR DR: Thelma Rodriguez, BON Tissues: 1 - BIOPSY BOWEL 2 - BIOPSY BOWEL Procedures: GROSS AND MICRO LEVEL 4 Comments: [id number]
[2022-11-21 12:32] VITALS: BP 103/51; PULSE 74; RESP 16; TEMP 36.5; O2SAT 97
--- NOTE | 2022-11-21 12:54 | W.ANESPOSTOP ---
Postoperative Evaluation Date, Time and Location Date Performed: 11/21/22 Time Performed: 12:54 Patient Location: Day Surgery Unit Vital Signs Most Recent Imported Vital Signs: Most Recent Vital Signs Temp Pulse Resp BP Pulse Ox 36.5 C 74 16 103/51 L 97 11/21/22 12:32 11/21/22 12:32 11/21/22 12:32 11/21/22 12:32 11/21/22 12:32 Pain Score Most Recent Pain Score: Most Recent Pain Score Pain Level 0 11/21/22 12:32 Assessment Mental Status: Awake (Alert & Oriented to Patient Baseline) Airway and Respiratory Function: Patent airway with normal (patient baseline) respiratory exam Cardiovascular Function: Hemodynamically Stable Hydration Status: Adequately Hydrated Nausea & Vomiting: No Nausea or Vomiting Pain: Pt. Denies Any Pain Peripheral Nerve Block: Patient did not receive a nerve block
[2022-11-21 13:04] VITALS: BP 140/56; PULSE 62; RESP 18; TEMP 36.6; O2SAT 98
== END 2022-11-21 13:25 | disposition home or self-care (01) ==
PROVIDERS: PCP Nurse Practitioner Family; Visit Provider Surgery
PROC: 0DJD8ZZ Inspection of Lower Intestinal Tract, Via Natural or Artificial Opening Endoscopic (ICD-10-PCS; CPT 45378; principal; 2022-11-21 11:45)
DX: Z12.11 Encounter for screening for malignant neoplasm of colon (principal); K63.5 Polyp of colon; Z98.0 Intestinal bypass and anastomosis status; Z85.038 Personal history of other malignant neoplasm of large intestine
CPT/HCPCS: 45380; 88305

== ENCOUNTER → 2022-12-10 08:45 | Outpatient (BNVA) | payer MEDICARE, SELFPAY | PROVIDERS: PCP Nurse Practitioner Family; Referring Provider Nurse Practitioner Family; Visit Provider Student in an Organized Health Care Education/Training Program | DX: M65.341 Trigger finger, right ring finger (principal) | CPT/HCPCS: 99214 ==

== ENCOUNTER 2023-01-03 07:53 | Day surgery (SDC) | payer MEDICARE, SELFPAY ==
--- NOTE | 2023-01-03 07:15 | W.PM.OP ---
Date of service: 01/03/23 Time of Service: 10:00 Operative Note Operative Note DATE OF PROCEDURE: 01/03/23 PRE-OP DIAGNOSIS: Right ring finger trigger finger POST-OP DIAGNOSIS: same PROCEDURE: Right ring finger trigger release, CPT #10993 SURGEON: Sam Karimi ANESTHESIA TYPE: Local By Surgeon Refer to Anesthesia Record Patient was transported to: PACU Patient's condition: stable Indications: Please see complete medical record for details. Procedure Description: In the operating room, local anesthesia was induced. The patient was positioned supine on the operating room table. All bony prominences were well-padded. Preoperative antibiotics were admitted. The right hand was prepped and draped in the usual sterile fashion. The correct patient, procedure, and side of the procedure were all verified prior to incision. Appropriate analgesia was confirmed. A small direct volar approach to the A1 israel was used a few centimeters in length through a skin wrinkle. Subcutaneous tissue was swept out of the way bluntly exposing the israel margins. A deep blade was used to incise the israel sequentially and carefully. Complete release was confirmed with mosquito snaps proximally and distally. The tendons were examined and had a mild swelling and fraying beneath the triggering israel site. Full range of motion was demonstrated with the patient without any mechanical symptoms. The small incision was thoroughly irrigated normal saline. Hemostasis was appropriate. The skin was closed using 4-0 nylon sutures. Xeroform applied over the top followed by gauze and the bandage and hand were gently compressed with an Gio bandage. The patient tolerated local anesthesia without complication and was transferred to the recovery room in a stable condition.
--- NOTE | 2023-01-03 07:21 | W.PM.DSUDISC ---
Date of service: 01/03/23 Time of Service: 12:00 Discharge Plan Disposition Patient Disposition: Home Condition: Stable Discharge Details Attending Provider: Sam Karimi Primary Care Provider: Thelma Rodriguez Home Meds and New Rx's Prescriptions: Continued losartan 100 mg tablet 100 mg PO DAILY Qty: 90 3RF diclofenac sodium 1 % gel 2 g topical QID PRN (Reason: pain) Qty: 100 3RF hydrochlorothiazide 25 mg tablet 25 mg PO DAILY Qty: 90 3RF sertraline 50 mg tablet 50 mg PO HS Qty: 90 3RF multivitamin [Daily Multi-Vitamin] 1 EACH tablet 1 ea PO DAILY glucosamine sulfate 2KCl 1,000 MG tablet 1,000 mg PO BID calcium carb and citrate-vitD3 1 EACH tablet extended release 1 ea PO BID Systane (propylene glycol) 15 ML drops 1 drp Ophthalmic BID Discontinued ibuprofen 200 MG capsule 200 - 400 mg PO PRN PRN naproxen sodium [Aleve] 220 MG capsule 440 mg PO DAILY PRN Discharge Instructions Additional Instructions: Surgery: Right ring finger trigger release Activity: Protect hand for a few weeks. Gently increase ring finger motion and hand gripping. Recommend elevation to minimize swelling and discomfort. Prescriptions: None Resume home medicines, use [id number] Tylenol (acetaminophen) as needed for mild pain and ibuprofen OR naproxen (Aleve) as needed for moderate to severe pain and swelling. Dressings: Leave dressing in place for 3 days. May then remove and leave open to air or cover incision with Band-Aid. May get wet after 5 days. Follow-up: 10-[address] Karimi Please call the office during business hours with any questions or concerns. Stand Alone Forms: Anesthesia Discharge Inst., Luciano Montejo (DSU) Referrals: Sam Karimi MD [ [facility] STAFF PHYSICIAN] - Discharge Orders Discharge Orders: Discharge Order (Routine); Ordered 01/03/23 Ordered By: Naima Desai DS: Diagnosis Discharge Diagnosis (1) Trigger finger, right ring finger: Status: Chronic
[2023-01-03 08:15] VITALS: BP 141/68; PULSE 74; RESP 16; TEMP 36.6; O2SAT 95
[2023-01-03] MEDS: Lactated Ringers 1,000 ML 30 ML IV (09:00)
[2023-01-03] MEDS: ceFAZolin 2 GM/50 ML BAG IVPB (09:28)
[2023-01-03] MEDS: Sodium Bicarbonate 50 MEQ/50 ML VIAL (09:57)
[2023-01-03] MEDS: Lidocaine 1% Pres-Free W/EPI 1/200,000 30 ML VIAL (09:57)
[2023-01-03 10:09] VITALS: BP 154/63; PULSE 61; RESP 16; TEMP 36.2; O2SAT 97
== END 2023-01-03 10:40 | disposition home or self-care (01) ==
PROVIDERS: PCP Nurse Practitioner Family; Visit Provider Student in an Organized Health Care Education/Training Program
PROC: (CPT 26055; principal; 2023-01-03 09:15)
DX: M65.341 Trigger finger, right ring finger (principal)
CPT/HCPCS: 26055; J0690

== ENCOUNTER → 2023-01-15 09:52 | Outpatient (BNVA) | payer MEDICARE, SELFPAY | PROVIDERS: PCP Nurse Practitioner Family; Referring Provider Nurse Practitioner Family; Visit Provider Student in an Organized Health Care Education/Training Program | DX: Z47.89 Encounter for other orthopedic aftercare (principal); M79.641 Pain in right hand ==

== ENCOUNTER 2023-01-24 00:30 | Outpatient (CLI) | payer MEDICARE, SELFPAY ==
--- NOTE | 2023-01-24 07:30 | DI.MAMMO_ITS ---
Exam(s) MAMMO DIAGNOSTIC UNI EXAM: MAMMO DIAGNOSTIC UNI CLINICAL HISTORY: 3-6 month follow up,R92.8,Z09. TECHNIQUE: Craniocaudal and mediolateral oblique Full Field Digital Mammography views of the right b reast with Computer Aided Diagnosis followed by Tomosynthesis. COMPARISON: No exams were available for comparison FINDINGS: Mammography/Tomosynthesis: Masses/Architectural Distortion: There again seen multiple well-circumscribed nodules in the right br east. There has been interval decrease in size of a nodule seen in the central medial right breast s salud the prior examination. Microcalcifictions: No suspicious pleomorphic-type are seen. Skin Thickening/Nipple Retraction: None. IMPRESSION: 1. No evidence of malignancy is noted. 2. A six-month follow-up right mammogram is recommended for re-evaluation. 3. The findings were discussed with the patient on the date of the examination. BI-RADS Category 3 - 6 month - Probably Benign Finding: Recommend follow-up imaging in 6 months Breast Density - Category C - Heterogeneously dense Breast density Category C or D implies that the patient has dense breast tissue. Dense breast tissue can make it harder to find cancer on a mammogram. Dense breast tissue is also associated with an incr eased risk of breast cancer. This information about the result of the mammogram report was provided to the patient to raise their awareness. Use this report when you speak with the patient about their risks for breast cancer, which includes their family history. At that time, you may recommend additional screening tests (Ultrasoun d or MRI) as these tests may add significant information. A negative radiographic report should not delay biopsy if a dominant or clinically suspicious mass is present. Up to ten percent of cancers are not identified on mammography. A negative report may reinforce clinical impression. Adenosis and dense breasts may obscure an underlying neoplasm. False positive reports average 6 to 10%. Patient will receive a letter notifying them of these results.
== END 2023-01-24 00:50 ==
LOC: DI 00:30
PROVIDERS: PCP Nurse Practitioner Family; Visit Provider Nurse Practitioner Family
DX: Z09 Encounter for follow-up examination after completed treatment for conditions other than malignant neoplasm; R92.8 Other abnormal and inconclusive findings on diagnostic imaging of breast
CPT/HCPCS: 77061; 77065; G0279

== ENCOUNTER 2023-07-22 03:48 | Outpatient (CLI) | payer MEDICARE, SELFPAY ==
[2023-07-22 13:13] LABS: BUN 26 mg/dL (7-18); CREATININE 0.9 mg/dL (0.55-1.02); Calcium 10.1 mg/dL (8.5-10.1); Chloride 102 mmol/L (98-107); Glucose 98 mg/dL (74-106); Potassium 3.7 mmol/L (3.5-5.1); Sodium 141 mmol/L (136-145)
[2023-07-22 23:26] LABS: Hepatitis C Ab w Rflx HCV PCR Negative (Negative)
== END 2023-07-22 03:49 | disposition home or self-care (01) ==
LOC: LBO 03:48
PROVIDERS: PCP Nurse Practitioner Family; Visit Provider Nurse Practitioner Family
DX: Z00.00 Encounter for general adult medical examination without abnormal findings (principal)
CPT/HCPCS: 36415; 80048; 86803

== ENCOUNTER → 2023-08-08 00:02 | Outpatient (CLI) | payer MEDICARE, SELFPAY ==
--- NOTE | 2023-08-08 | DI.US_ITS ---
Exam(s) US BREAST LT COMPLETE US BREAST RT COMPLETE MG MAMMO DIAGNOSTIC BI EXAM: MG MAMMO DIAGNOSTIC BI COMPLETE BILATERAL BREAST ULTRASOUND CLINICAL HISTORY: 6 month follow up,DIAGNOSTIC, R92.8,Z09,ABNL MAMMO. TECHNIQUE: BILATERAL CC AND MLO mammographic images were obtained with 3D tomosynthesis technique an d utilizing computer aided detection (CAD). BILATERAL COMPLETE BREAST ULTRASOUND performed, including all 4 quadrants of both breasts as well as both axillary regions. COMPARISON: Prior mammograms were reviewed, as were prior ultrasound. FINDINGS: DIAGNOSTIC BILATERAL MAMMOGRAM: Previously described small bilateral benign-appearing nodules in the right breast are unchanged and c orrespond to cysts on today's ultrasound. Benign-appearing microcalcification groups in the right br east are also stable. In the left breast there is increase in number of small nodular densities anteriorly when compared to prior mammograms. These are shown to be microcyst on today's ultrasound. No malignant-appearing microcalcification groups in either breast. No new architectural distortion or skin thickening-traction. BILATERAL COMPLETE BREAST ULTRASOUND: Left breast ultrasound: At the 12 o'clock position there are few small microcysts measuring up to 5 mm. At the 1 o'clock pos ition there also a few microcysts. At 3 o'clock position there is a 4 millimeter microcyst. At 6 o' clock position there is a 4 millimeter microcyst. At 7 o'clock position there is a 4 millimeter micr ocyst. At 9 o'clock position there is a 3 millimeter microcyst. No solid lesions. Scanning of the left axilla is negative for adenopathy. Right breast ultrasound: At 12 o'clock position there are few microcyst again noted measuring up to 4 mm There is also a conglomeration microcysts at 6 o'clock position there is a 3 millimeter microcyst. N o solid lesions. Scanning of the right axilla is negative for adenopathy. IMPRESSION: Benign bilateral findings. The small bilateral breast nodules correspond to microcysts on ultrasound today. Appropriate follow-up is to keep this patient on a yearly mammogram schedule, with earlier imaging if a self detected breast change is noted.. The patient was informed of the findings and follow-up recommendations by myself prior to leaving the department today. BI-RADS Category 2 - Benign Findings Breast Density - Category B - Scattered areas of fibroglandular density Breast density Category C or D implies that the patient has dense breast tissue. Dense breast tissue can make it harder to find cancer on a mammogram. Dense breast tissue is also associated with an incr eased risk of breast cancer. This information about the result of the mammogram report was provided to the patient to raise their awareness. Use this report when you speak with the patient about their risks for breast cancer, which includes their family history. At that time, you may recommend additional screening tests (Ultrasoun d or MRI) as these tests may add significant information. A negative radiographic report should not delay biopsy if a dominant or clinically suspicious mass is present. Up to ten percent of cancers are not identified on mammography. A negative report may reinforce clinical impression. Adenosis and dense breasts may obscure an underlying neoplasm. False positive reports average 6 to 10%. Patient will receive a letter notifying them of these results.
== END ==
PROVIDERS: PCP Nurse Practitioner Family; Visit Provider Nurse Practitioner Family
DX: Z09 Encounter for follow-up examination after completed treatment for conditions other than malignant neoplasm (principal)
CPT/HCPCS: 76642; 77062; 77066; G0279

== ENCOUNTER 2024-04-08 20:26 | Outpatient (REF) | payer MEDICARE, SELFPAY | END 2024-04-08 20:27 | disposition home or self-care (01) | LOC: LBN 20:26 | PROVIDERS: PCP Nurse Practitioner Family; Visit Provider Physician Assistant | DX: N39.0 Urinary tract infection, site not specified (principal); B96.29 Other Escherichia coli [E. coli] as the cause of diseases classified elsewhere; R82.89 Other abnormal findings on cytological and histological examination of urine | CPT/HCPCS: 87077; 87086; 87186 ==

== ENCOUNTER 2024-07-06 01:06 | Outpatient (CLI) | payer MEDICARE, SELFPAY ==
--- NOTE | 2024-07-06 06:30 | DI.US_ITS ---
APPROVED REPORT EXAM: Comprehensive 2D, Doppler, and color-flow Echocardiogram Patient Location: Out-Patient [place] Charger: Maureen Muñiz RDCS (AE) Indications: Systolic murmur, Dyspnea on exertion Other Information Study Quality: Adequate Conclusion Normal left ventricular wall thickness and chamber size. Ejection fraction is 60%. Wall motion is n ormal Normal right ventricular size and function Both atria are normal in size There is no structural or hemodynamically significant valvular disease Estimated right ventricular systolic pressure is 28 mmHg Wall motion Left Ventricle The left ventricle is normal size. The left ventricular systolic function is normal. The left ventric ular ejection fraction is within the normal range. There is normal left ventricular wall thickness. T here is normal LV segmental wall motion. There is no ventricular septal defect visualized. LVEF is 60 %. Right Ventricle The right ventricle is normal size. The right ventricular systolic function is normal. Atria The left atrium size is normal. The right atrium size is normal. The interatrial septum is intact wit h no evidence for an atrial septal defect. Aortic Valve The aortic valve is normal in structure. Aortic valve is trileaflet. There is no aortic valvular sten osis. No aortic regurgitation is present. Mitral Valve The mitral valve is normal in structure. No evidence of mitral valve stenosis. Trace mitral regurgita tion. Tricuspid Valve The tricuspid valve is normal in structure. There is no tricuspid valve stenosis. Trace tricuspid reg urgitation. The RVSP is 28.0_ mmHg. Pulmonic Valve The pulmonary valve is normal in structure. There is no pulmonic valvular stenosis. There is no pulmo christy valvular regurgitation. Great Vessels The aortic root is normal in size. The ascending aorta is normal in size. Aortic arch is not well vis ualized. IVC is normal in size and collapses >50% with inspiration. Pericardium There is no pericardial effusion. 2D Dimensions IVSD d PLAX 1.00 cm F: 0.6-1.0 Ao Root d 2.56 cm F: 2.7 - 3.3 LVPW d PLAX 1.03 cm F: 0.6 - 1.0 Ao Asc Diam d 3.14 cm F: 2.3 - 3.1 LVID d PLAX 4.15 cm F: 3.8 - 5.2 LVDs 2.84 cm F: 2.2 - 3.5 LV EF Teichholz 60.0 % FS 31.64 % LV EDV (Teich) 76.5 mL LV ESV (Teich) 30.6 mL M-Mode TAPSE 2.20 cm (M/F) >1.7 Auto EF LV EDV A4C 91.7 mL LV EDV A2C 78.9 mL LV EDV BP 85.5 mL LV ESV A4C 36.6 mL LV ESV A2C 32.7 mL LV ESV BP 34.9 mL LVEF(%) A4C 60.1 % LVEF(%) A2C 58.6 % LVEF(%) BP 59.2 % LV SV A4C 55.1 ml LV SV A2C 46.2 ml LV SV BP 50.6 ml LV CO A4C 3.6 L/min LV CO A2C 3.4 L/min LV CO BP 3.5 L/min HR A4C 65.82 BPM HR A2C 72.58 BPM LV EDV Index (BP) LA Volume LA Length A4C 5.3 cm LA Length A2C 4.7 cm LA Area A4C s 16.64 cm2 LA Area A2C s 17.87 cm2 LA Vol A4C A-L 44.32 mL LA Vol A2C A-L 57.56 mL LA Vol Biplane A-L 53.6 mL LA Vol/BSA A4C A-L LA Vol/BSA A2C A-L LA Vol/BSA BP A-L 26.9 mL/m2 LA Vol A4C MOD 42.6 mL LA Vol A2C MOD 52.8 mL LA Vol BP MOD 50.1 mL LV Diastology MV E' medial 0.087 (>0.07 m/s) MV E Vmax 0.90 (0.4-1.3 m/s) MV E/E' MED 10.38 (<14) MV A Vmax 1.00 (0.4-1.3 m/s) MV E' lateral 0.102 (>0.1 m/s) E/A Ratio 0.9 MV E/E' LAT 8.84 (<14) MV E' Average 0.095 m/s MV E/E'(average) 9.55 Aortic Valve AoV Vmax 1.71 m/s LVOT Vmax 1.28 m/s AoV Peak Grad 11.8 mmHg LVOT Peak Grad 6.5 mmHg AoV Area (Vmax) 2.15 cm2 LVOT VTI 0.274 m AoV VTI 0.401 m LVOT Mean Grad 3.4 mmHg AoV Mean Matteo. 1.15 m/s LVOT SV 79.11 mL AoV Mean Grad 6.1 mmHg LVOT Diam s 1.90 cm AoV Area (VTI) 1.97 cm2 AV Regurg Peak Gr. 11.75 mmHg Velocity Ratio 0.75 Mitral Valve MV DT 232 (160-240 msec) MV Vmax TIPS 1.07 m/s MV Mean Grad 2.1 (<2mmHg) MV VTI 0.338 m Pulmonary Valve PV Vmax 1.15 (0.5-1.5 m/s) RVOT Vmax 1.03 m/s PV Peak Grad 5.3 mmHg RVOT Peak Gr. 4.3 mmHg PV Mean Matteo 0.84 m/s RVOT VTI 0.245 m PV Mean Grad 3.2 mmHg RVOT Mean Gr. 2.4 mmHg Tricuspid Valve RA Pressure 3.00 mmHg TR Vmax 2.50 m/s TV S' 0.15 m/s TR Peak Grad 25.0 mmHg RVSP (TR) 28.0 mmHg
== END 2024-07-06 01:26 ==
PROVIDERS: PCP Nurse Practitioner Family; Visit Provider Internal Medicine Cardiovascular Disease
DX: R06.09 Other forms of dyspnea (principal); R01.1 Cardiac murmur, unspecified
CPT/HCPCS: 93306

== ENCOUNTER 2024-07-06 16:03 | Outpatient (CLI) | payer MEDICARE, SELFPAY ==
[2024-07-06 13:01] LABS: Anion Gap 6.1 mmol/L (3-11); BUN 23 mg/dL (7-18); CO2 31.9 mmol/L (21.0-32.0); Calcium 10.7 mg/dL (8.5-10.1); Chloride 104 mmol/L (98-107); Estimated GFR 59.12 (mL/min/1.73m2); Glucose 92 mg/dL (74-106); Potassium 3.8 mmol/L (3.5-5.1); Sodium 142 mmol/L (136-145)
[2024-07-06 23:39] LABS: HBs Antibody, Quant <3.1 mIU/mL (See Note); Hep B Surface Ab Negative (See Note); Hepatitis B Core Antibody Negative (Negative); Hepatitis B Surface Antigen Negative (Negative)
[2024-07-06 23:44] LABS: HIV-1/2 Ag & Ab Screen Negative (Negative)
== END 2024-07-06 16:04 | disposition home or self-care (01) ==
LOC: LBO 16:04
PROVIDERS: PCP Nurse Practitioner Family; Visit Provider Nurse Practitioner Family
DX: Z11.4 Encounter for screening for human immunodeficiency virus [HIV] (principal); I10 Essential (primary) hypertension; Z11.59 Encounter for screening for other viral diseases
CPT/HCPCS: 36415; 80048; 86704; 86706; 87340; 87389

== ENCOUNTER 2024-07-21 02:09 | Outpatient (CLI) | payer MEDICARE, SELFPAY ==
[2024-07-21 13:54] LABS: BUN 17 mg/dL (7-18); CREATININE 1.1 mg/dL (0.55-1.02); Calcium 9.7 mg/dL (8.5-10.1); Chloride 104 mmol/L (98-107); Estimated GFR 52.73 (mL/min/1.73m2); Glucose 115 mg/dL (74-106); Potassium 3.8 mmol/L (3.5-5.1); Sodium 145 mmol/L (136-145)
== END 2024-07-21 02:10 | disposition home or self-care (01) ==
PROVIDERS: PCP Nurse Practitioner Family; Visit Provider Nurse Practitioner Family
DX: E83.52 Hypercalcemia (principal)
CPT/HCPCS: 36415; 80048

== ENCOUNTER 2024-08-09 01:27 | Outpatient (CLI) | payer MEDICARE, SELFPAY ==
--- NOTE | 2024-08-09 06:30 | DI.MAMMO_ITS ---
Exam(s) MAMMO SCREENING EXAM: MAMMO SCREENING CLINICAL HISTORY: screening,z12.39. TECHNIQUE: Bilateral full field digital CC and MLO mammographic images were obtained with 3D tomosyn thesis and utilizing computer aided detection (CAD). COMPARISON: Prior mammograms were reviewed. FINDINGS: There has been no significant change in the appearance and distribution of the fibroglandular tissue. Multiple small bilateral breast nodules are again noted, unchanged. These were shown to be microcyst on prior bilateral breast ultrasound examination. There are no new spiculated masses nor new malignant appearing microcalcification groups. There is no significant architectural distortion nor skin thickening-retraction. IMPRESSION: Stable benign-appearing findings. No radiographic evidence of malignancy. BI-RADS Category 2 - Benign Findings Breast Density - Category B - Scattered areas of fibroglandular density Breast density Category C or D implies that the patient has dense breast tissue. Dense breast tissue can make it harder to find cancer on a mammogram. Dense breast tissue is also associated with an incr eased risk of breast cancer. This information about the result of the mammogram report was provided to the patient to raise their awareness. Use this report when you speak with the patient about their risks for breast cancer, which includes their family history. At that time, you may recommend additional screening tests (Ultrasoun d or MRI) as these tests may add significant information. A negative radiographic report should not delay biopsy if a dominant or clinically suspicious mass is present. Up to ten percent of cancers are not identified on mammography. A negative report may reinforce clinical impression. Adenosis and dense breasts may obscure an underlying neoplasm. False positive reports average 6 to 10%. Patient will receive a letter notifying them of these results.
== END 2024-08-09 01:47 ==
PROVIDERS: PCP Nurse Practitioner Family; Visit Provider Nurse Practitioner Family
DX: Z12.31 Encounter for screening mammogram for malignant neoplasm of breast (principal); R92.323 Mammographic fibroglandular density, bilateral breasts
CPT/HCPCS: 77063; 77067

== ENCOUNTER 2025-04-11 15:00 | Outpatient (REF) | payer MEDICARE, SELFPAY ==
[2025-04-11 15:41] LABS: Abs Immature Grans 0.02 10^3/uL (0.0-0.06); HCT 39.0 % (36.0-46.0); HGB 12.8 g/dL (11.2-15.7); Immature Grans % 0.3 %; MCH 30.1 pg (27.0-33.0); MCHC 32.8 % (32.0-36.0); MCV 92 fL (80-95); MPV 10.8 fL (8.0-11.0); Platelet Count 261 10^3/uL (130-400); RBC 4.25 10^6/uL (3.93-5.22); RDW 13.1 % (11.7-14.6); RDW-SD 44.1 fL; WBC 5.84 10^3/uL (4.4-10.8)
[2025-04-11 16:04] LABS: Anion Gap 11.9 mmol/L (3-11); BUN 28 mg/dL (7-18); CO2 24.1 mmol/L (21.0-32.0); Calcium 9.1 mg/dL (8.5-10.1); Chloride 104 mmol/L (98-107); Estimated GFR 66.67 (mL/min/1.73m2); Glucose 123 mg/dL (74-106); Potassium 4.0 mmol/L (3.5-5.1); Sodium 140 mmol/L (136-145); Uric Acid 5.0 mg/dL (2.6-6.0)
== END 2025-04-11 15:01 | disposition home or self-care (01) ==
LOC: LBN 15:00
PROVIDERS: PCP Nurse Practitioner Family; Visit Provider Nurse Practitioner Family
DX: N18.30 Chronic kidney disease, stage 3 unspecified (principal)
CPT/HCPCS: 80048; 84550; 85025